=== PATIENT | female | born 1985 | race American Indian/Alaskan Native ===

== ENCOUNTER 2016-10-09 09:19 | Observation (INO) | payer BC, OTHER ==
[2016-10-09 09:19] VITALS: BMI 29.0
[2016-10-09] MEDS ORDERED: Sodium Chloride 0.9% 1,000 ML IV STA (09:54)
[2016-10-09 09:58] VITALS: RESP 18
--- NOTE | 2016-10-09 10:04 | ED PDOC ---
Arrival/HPI - General Historian: Patient - History of Present Illness Symptom Onset: Gradual Symptom Course: Worsening Quality: Pressure Severity Level: 8 Activities at Onset: Rest Context: Home - General Chief Complaint: Chest Pain Time Seen by Provider: 10/09/16 09:29 - History of Present Illness Narrative History of Present Illness (Text): 10/09/16 09:57 31 F with PMHx of costochondritis and fibroids [place] [facility] with complaints of chest pains. Pt states that her chest pain, described as pressure- like, began last night and has slowly intensified in severity from a 6/10 to a 8 /10. Pt noted that she felt feverish, lightheaded, headache, sob and dizzy last night as well. Her symptoms have gradually worsened since last night, and recently started feeling Right quadrant abdominal pain/pressure upon examination. Pt denied any recent surgeries, trauma, illnesses, recent travels, or sick contacts. Pt had a bm last night and is eating regularly. Pt currently denied fever, chills, palpitations, n/v/d/c or urinary symptoms. PMHx: costochondritis, fibroids PSHx: D&C following miscarriage SHx: Lives in [place] with spouse, denied tobacco, etoh, or drug abuse. Works as [employer]. LMP: 09/20/16 FamHx: Nonsignificant Allergies: NKDA Meds: none PMD: Dr. Diana Velazquez ([facility]) Past Medical History - Psychiatric Hx Substance Use: No - Surgical History Hx Section: Yes - Anesthesia Hx Anesthesia: Yes Hx Anesthesia Reactions: No Hx Malignant Hyperthermia: No Family/Social History Family/Social History: No Known Family HX Smoking Status: Never Smoked Hx Alcohol Use: No Hx Substance Use: No Allergies/Home Meds Allergies/Adverse Reactions: Allergies No Known Allergies Allergy (Verified 10/09/16 09:58) Home Medications: Home Meds Medication Instructions Recorded Confirmed No Known Home Med 05/31/16 10/09/16 Review of Systems - Review of Systems Constitutional: Fatigue Eyes: Normal ENT: Normal Respiratory: SOB. absent: Cough Cardiovascular: Chest Pain. absent: Palpitations Gastrointestinal: Abdominal Pain, Appetite Changes. absent: Stool Changes, Constipation, Diarrhea, Nausea, Vomiting Genitourinary Female: Normal Musculoskeletal: Myalgias Skin: Normal Neurological: Headache, Dizziness Endocrine: Normal Hemo/Lymphatic: Normal Psychiatric: Normal Physical Exam Vital Signs Reviewed: Yes Blood Pressure: Normal Pulse: Regular Respiratory Rate: Normal Appearance: Positive for: Well-Appearing, Non-Toxic, Comfortable Pain Distress: Moderate Mental Status: Positive for: Alert and Oriented X 3 - Systems Exam Head: Present: Atraumatic, Normocephalic Pupils: Present: PERRL Extroacular Muscles: Present: EOMI Conjunctiva: Present: Normal Mouth: Present: Moist Mucous Membranes Pharnyx: Present: Normal Neck: Present: Normal Range of Motion Respiratory/Chest: Present: Clear to Auscultation, Good Air Exchange, Tender to Palpation. No: Respiratory Distress, Accessory Muscle Use Cardiovascular: Present: Regular Rate and Rhythm, Normal S1, S2. No: Murmurs Abdomen: Present: Tenderness (ruq, rlq), Normal Bowel Sounds Upper Extremity: Present: Normal Inspection. No: Cyanosis, Edema Lower Extremity: Present: Normal Inspection. No: Edema Neurological: Present: GCS=15, CN II-XII Intact, Speech Normal Skin: Present: Warm, Dry, Normal Color. No: Rashes Psychiatric: Present: Alert, Oriented x 3, Normal Insight, Normal Concentration Vital Signs Temp Pulse Resp BP Pulse Ox 10/09/16 09:37 98.6 F 76 18 125/86 98 Medical Decision Making ED Course and Treatment: 10/09/16 10:07 31 F with PMHx of costochondritis presented [place] [facility] with complaints of migratory chest pains msk in nature, abdominal pains, and malaise. -- EKG -- CBC -- CMP -- amylase -- lipase -- UA -- UCx -- B-HCG -- CXR -- IVF -- analgesics, toradol -- PERC negative -- Influenza a/b swab -- CT Abd IV contrast (Jax,Manit) 10/09/16 11:51 Patient was seen by resident and then seen by me. Patient reported history of myalgias and subjective fever. She reported intermittent "chest tightness". She was also complaining of abdominal pain. She denies OCP use, recent surgery , calf swelling, tobacco use, family hx of sudden cardiac disease, HTN, DM, recent travel, or hx of pulmonary embolism. Physical exam was significant for RLQ pain. Labs, including ekg and cxray were ordered. Patient is perc negative. 10/09/16 12:52 EKG shows NSR at 70bpm with normal intervals and no ST changes. Cxray was negative. Flu and labs were negative. negative. Due to persistent abdominal pain, CT was ordered. Will sign out to Dr. Stoner to follow-up and reevaluate (Nicolasa Bobo) - Lab Interpretations Lab Results: 10/09/16 10:15 10/09/16 10:15 Lab Results 10/09/16 11:20: Influenza Typ A,B (EIA) Negative for flu a/b 10/09/16 10:15: WBC 8.6 D, RBC 4.54, Hgb 11.7 L, Hct 34.1 L, MCV 75.1 L, MCH 25.8, MCHC 34.3, RDW 13.7, Plt Count 269, MPV 10.7, Gran % 69.3 H, Lymph % (Auto ) 19.7 L, [place] % (Auto) 8.5 H, Eos % (Auto) 2.2, Baso % (Auto) 0.3, Gran # 5.96 , Lymph # 1.7, [place] # 0.7 H, Eos # 0.2, Baso # 0.03, Sodium 139, Potassium 4.1, Chloride 104, Carbon Dioxide 26, Anion Gap 13, BUN 9, Creatinine 0.8, Est GFR ( Amer) > 60, Est GFR (Non-Af Amer) > 60, Random Glucose 94, Calcium 9.2, Total Bilirubin 0.5, AST 23, ALT 12, Alkaline Phosphatase 46, Total Protein 7.5 , Albumin 4.0, Globulin 3.5, Albumin/Globulin Ratio 1.1, Amylase 81, Lipase 53, Urine Color Yellow, Urine Appearance Clear, Urine pH 7.0, Ur Specific [place] 1.015, Urine Protein Negative, Urine Glucose (UA) Negative, Urine Ketones Negative, Urine Blood Trace-intact H, Urine Nitrate Negative, Urine Bilirubin Negative, Urine Urobilinogen 0.2, Ur Leukocyte Esterase Negative, Urine RBC 0 - 2, Urine WBC Negative, Ur Epithelial Cells 0 - 2, Urine HCG, Qual Negative - RAD Interpretation Radiology Orders: 10/09/16 09:52 CHEST PORTABLE [RAD] Stat 10/09/16 11:36 ABD & PELVIS IV CONTRAST ONLY [CT] Stat - Medication Orders Current Medication Orders: Discontinued Medications Sodium Chloride (Sodium Chloride 0.9%) 1,000 mls @ 999 mls/hr IV .Q1H1M STA Stop: 10/09/16 10:54 Last Admin: 10/09/16 10:16 Dose: 999 MLS/HR eMAR Start Stop Document 10/09/16 10:16 [facility] (Rec: 10/09/16 10:16 [place] [id number]) Intravenous Solution Start Date 10/09/16 Start Time 10:16 End Date 10/09/16 End time 11:16 Total Infusion Time 60 Iohexol (Omnipaque 350 100 Ml) Confirm Administered Dose 350 mg .ROUTE .STK-MED ONE Stop: 10/09/16 11:45 Ketorolac Tromethamine (Toradol) 30 mg IVP STAT STA Stop: 10/09/16 09:55 Last Admin: 10/09/16 10:16 Dose: 30 MG IVP Administration Document 10/09/16 10:16 [facility] (Rec: 10/09/16 10:16 [place] [id number]) Charges for Administration # of IVP Administrations 1 Disposition/Present on Arrival - Present on Arrival Any Indicators Present on Arrival: No History of DVT/PE: No History of Uncontrolled Diabetes: No Urinary Catheter: No History Surgical Site Infection Following: None - Disposition Have Diagnosis and Disposition been Completed?: Yes Disposition Time: 11:00 - Disposition Diagnosis: Myalgia Patient Problems: Current Active Problems Problem Status Diagnosed Myalgia Acute Condition: IMPROVED Additional Instructions: 1. Pt is to fu with PMD Dr. Velazquez 2. Pt welcome to return [place] [facility] if develop any acute symptoms Referrals: Diana Velazquez DO [Primary Care Provider] - Follow up with primary
[2016-10-09 10:28] LABS: ADD MANUAL DIFF? NO
[2016-10-09 10:30] LABS: BASO # 0.03 K/mm3 (0.0-2.0); BASO % 0.3 % (0.0-3.0); EOS # 0.2 (0.0-0.7); EOS % 2.2 % (1.5-5.0); GRAN # 5.96 (1.4-6.5); GRAN % 69.3 % (50.0-68.0); HEMATOCRIT 34.1 % (36.0-48.0); LYMPH # 1.7 (1.2-3.4); LYMPH % 19.7 % (22.0-35.0); MEAN CELL VOLUME 75.1 fL (80.0-105.0); MEAN CORPUSCULAR HEMOGLOBIN 25.8 pg (25.0-35.0); MEAN CORPUSCULAR HGB CONC 34.3 g/dl (31.0-37.0); MEAN PLATELET VOLUME 10.7 fl (7.0-11.0); MONO # 0.7 (0.1-0.6); MONO % 8.5 % (1.0-6.0); PLATELET COUNT 269 10^3/uL (120.0-450.0); RED CELL DISTRIBUTION WIDTH 13.7 % (11.5-14.5); WHITE BLOOD COUNT 8.6 10^3/ul (4.5-11.0)
[2016-10-09 10:31] LABS: URINE BILIRUBIN NEGATIVE (NEGATIVE); URINE BLOOD TRACE-INTACT (NEGATIVE); URINE GLUCOSE (UA) NEGATIVE (NEGATIVE); URINE KETONE NEGATIVE (NEGATIVE); URINE LEUKOCYTE ESTERASE NEGATIVE Leu/uL (NEGATIVE); URINE PROTEIN NEGATIVE mg/dL (<30 mg/dL); URINE UROBILINOGEN 0.2 E.U./dL (<1 E.U./dL)
[2016-10-09 10:32] LABS: URINE APPEARANCE CLEAR (CLEAR); URINE COLOR YELLOW (YELLOW)
[2016-10-09 10:38] LABS: ALB/GLOB RATIO 1.1 (1.1-1.8); ALKALINE PHOSPHATASE 46 U/L (38-133); ALT/SGPT 12 U/L (7-56); AMYLASE 81 U/L (35-125); AST/SGOT 23 U/L (15-39); BILIRUBIN,TOTAL 0.5 mg/dL (0.2-1.3); BLOOD UREA NITROGEN 9 mg/dL (7-21); CALCIUM 9.2 mg/dL (8.4-10.5); CARBON DIOXIDE 26 mmol/L (21-33); CHLORIDE 104 mmol/L (98-107); GFR AFRICAN-AMERICAN > 60; GLUCOSE,RANDOM 94 mg/dL (70-110); LIPASE 53 U/L (23-300); POTASSIUM 4.1 mmol/L (3.6-5.0); SODIUM 139 mmol/L (132-148); TOTAL PROTEIN 7.5 g/dL (5.8-8.3)
[2016-10-09 10:47] LABS: URINE EPITHELIAL CELLS 0 - 2 /hpf (0-5); URINE RBC 0 - 2 /hpf (0-2); URINE WBC NEGATIVE /hpf (0-6)
--- NOTE | 2016-10-09 11:28 | RAD ---
HISTORY: chest pain COMPARISON: No prior. FINDINGS: LUNGS: No active pulmonary disease. PLEURA: No significant pleural effusion identified, no pneumothorax apparent. CARDIOVASCULAR: Normal. OSSEOUS STRUCTURES: No significant abnormalities. VISUALIZED UPPER ABDOMEN: Normal. OTHER FINDINGS: None. IMPRESSION: No active disease.
[2016-10-09] MEDS ORDERED: Iohexol 350 MG/100 ML VIAL ONE (11:44)
--- NOTE | 2016-10-09 13:04 | CT ---
PROCEDURE: CT Abdomen and Pelvis with contrast HISTORY: rlq pain COMPARISON: None. TECHNIQUE: Contrast dose: 100 mL of Omnipaque 350 Radiation dose: Total exam DLP = 648.87 mGy-cm. FINDINGS: LOWER THORAX: Unremarkable. LIVER: There is 1.3 centimeter low-attenuation lesion at the liver dome of uncertain etiology. Otherwise the liver demonstrates homogeneous enhancement. The portal vein is patent. GALLBLADDER AND BILE DUCTS: Unremarkable. PANCREAS: Unremarkable. No gross lesion or ductal dilatation. SPLEEN: Unremarkable. ADRENALS: Unremarkable. No mass. KIDNEYS AND URETERS: Mild fullness seen in the collecting system of both kidneys. The kidneys enhance symmetrically. VASCULATURE: Unremarkable. No aortic aneurysm. BOWEL: Unremarkable. No obstruction. No gross mural thickening. Mild constipation is noted. APPENDIX: Normal appendix. PERITONEUM: Unremarkable. No free fluid. No free air. LYMPH NODES: Unremarkable. No enlarged lymph nodes. BLADDER: Mild urinary bladder wall thickening. REPRODUCTIVE: The uterus is enlarged contains multiple calcified lesions suggestive of calcified fibroid. There is a enhancing wall cystic lesion at the left pelvis measures 2.4 centimeter may represent hemorrhagic cyst. There is also small sub centimeter enhancing wall lesion at the right adnexa. Small amount of fluid seen posterior to the uterus BONES: No acute fracture. OTHER FINDINGS: None. IMPRESSION: No evidence of appendicitis. No CT evidence of cholecystitis or pancreatitis. Mild constipation. Mildly enlarged heterogeneous uterus likely contains calcified fibroids. 2.4 centimeter enhancing wall cyst at the left adnexa may represent hemorrhagic cyst. Trace fluid in the pelvis. 1.3 centimeter low-attenuation lesion at the liver dome of uncertain etiology.
[2016-10-09 13:11] VITALS: BP 128/74; TEMP 97.6; O2SAT 100
[2016-10-09 14:59] VITALS: PULSE 76
--- NOTE | 2016-10-09 17:48 | CARD ---
APPROVED REPORT EKG Measurement Heart [id number] [place] [id number] [id number] <Conclusion> Normal sinus rhythm Normal ECG
== END 2016-10-09 13:20 | disposition home or self-care (01) ==
LOC: ED 09:19 → EROBSV 13:00
PROVIDERS: ADMIT Emergency Medicine; ATTEND Emergency Medicine
DX: M79.1 Myalgia (principal)
CPT/HCPCS: 71010; 74177; 80053; 81001; 82150; 83690; 84703; 85025; 87086; 87804; 93005; 96361; 96374; 99284; G0378; J1885; J7040; Q9967

== ENCOUNTER 2016-11-07 18:28 | Emergency (ER) | payer BC ==
[2016-11-07 18:37] VITALS: BMI 29.5
[2016-11-07 18:40] VITALS: BP 97/63; PULSE 105; RESP 16; TEMP 101; O2SAT 99
[2016-11-07] MEDS ORDERED: Sodium Chloride 0.9% 1,000 ML IV STA (19:15)
--- NOTE | 2016-11-07 19:19 | ED PDOC ---
Arrival/HPI - General Chief Complaint: Fever Time Seen by Provider: 11/07/16 19:15 Historian: Patient - History of Present Illness Narrative History of Present Illness (Text): 11/07/16 19:16 31yo female with no PMHx present with complaint of sore throat, fever, generalized weakness. Reports 3episodes of diarrhea this morning. States sore throat has been intermittent x 3weeks now. Did not take any medication for symptoms. +Dysphagia. Denies nausea, vomiting, abdominal pain, sick contact, travel, any other complaint. Past Medical History - Provider Review Nursing Documentation Reviewed: Yes - Psychiatric Hx Substance Use: No - Surgical History Hx Section: Yes - Anesthesia Hx Anesthesia: Yes Hx Anesthesia Reactions: No Hx Malignant Hyperthermia: No Family/Social History - Physician Review Nursing Documentation Reviewed: Yes Family/Social History: Unknown Family HX Smoking Status: Never Smoked Hx Alcohol Use: No Hx Substance Use: No Allergies/Home Meds Allergies/Adverse Reactions: Allergies No Known Allergies Allergy (Verified 11/07/16 18:37) Home Medications: Home Meds Medication Instructions Recorded Confirmed Ergocalciferol (Vitamin D2) 50,000 units PO .WEEKLY 11/07/16 11/07/16 [Vitamin D] Review of Systems - Physician Review All systems were reviewed & negative as marked: Yes - Review of Systems Constitutional: Fevers Eyes: Normal ENT: Sore Throat Respiratory: Normal Cardiovascular: Normal Gastrointestinal: Diarrhea. absent: Abdominal Pain, Constipation, Nausea, Hematochezia, Hematemesis Genitourinary Female: Normal Musculoskeletal: Myalgias Skin: Normal Neurological: Normal Endocrine: Normal Hemo/Lymphatic: Normal Psychiatric: Normal Physical Exam Vital Signs Reviewed: Yes Vital Signs Temp Pulse Resp BP Pulse Ox 11/07/16 19:29 101 F H 11/07/16 18:37 101 F H 105 H 16 97/63 L 99 Temperature: Febrile Blood Pressure: Normal Pulse: Tachycardic Respiratory Rate: Normal Appearance: Positive for: Well-Appearing, Non-Toxic, Comfortable Pain Distress: None Mental Status: Positive for: Alert and Oriented X 3 - Systems Exam Head: Present: Atraumatic, Normocephalic Pupils: Present: PERRL Extroacular Muscles: Present: EOMI Conjunctiva: Present: Normal Mouth: Present: Moist Mucous Membranes Pharnyx: Present: ERYTHEMA. No: EXUDATE, TONSILS ENLARGED, Peritonsilar Swelling, Uvular Deviation, Muffled/Hoarse Voice, Strider Nose (External): No: Atraumatic Neck: Present: Normal Range of Motion Respiratory/Chest: Present: Clear to Auscultation, Good Air Exchange. No: Respiratory Distress, Accessory Muscle Use Cardiovascular: Present: Regular Rate and Rhythm, Normal S1, S2. No: Murmurs Abdomen: Present: Normal Bowel Sounds, Other (Soft). No: Tenderness, Distention , Peritoneal Signs, Rebound, Guarding, McBurney's Point Tender, Rovsing's Sign Present Back: Present: Normal Inspection Upper Extremity: Present: Normal Inspection. No: Cyanosis, Edema Lower Extremity: Present: Normal Inspection. No: Edema Neurological: Present: GCS=15, CN II-XII Intact, Speech Normal Skin: Present: Warm, Dry, Normal Color. No: Rashes Psychiatric: Present: Alert, Oriented x 3, Normal Insight, Normal Concentration Medical Decision Making ED Course and Treatment: 11/07/16 22:32 Pt presented for stated history. She was febrile on presentation. Lab was reviewed with very mild leukocytosis noted. Rapid strep was positive. Pt was tx with Decadron, PCN and hydrated in ED. Result was DW the pt. she was referred to her PMD. TRT ED for any new or worsening symptoms. - Lab Interpretations Lab Results: 11/07/16 19:21 11/07/16 19:21 Lab Results 11/07/16 19:21: WBC 11.4 H D, RBC 4.54, Hgb 11.7 L, Hct 33.5 L, MCV 73.8 L, MCH 25.8, MCHC 34.9, RDW 14.1, Plt Count 234, MPV 9.9, Gran % 85.2 H, Lymph % (Auto ) 8.7 L, [place] % (Auto) 6.0, Eos % (Auto) 0.0 L, Baso % (Auto) 0.1, Gran # 9.73 H , Lymph # 1.0 L, [place] # 0.7 H, Eos # 0.0, Baso # 0.01, Sodium 138, Potassium 3.4 L, Chloride 102, Carbon Dioxide 25, Anion Gap 14, BUN 8, Creatinine 0.9, Est GFR ( Amer) > 60, Est GFR (Non-Af Amer) > 60, Random Glucose 100, Calcium 9.0, Total Bilirubin 0.7, AST 23, ALT 25, Alkaline Phosphatase 42, Total Protein 8.0, Albumin 4.0, Globulin 4.0, Albumin/Globulin Ratio 1.0 L, Influenza Typ A,B (EIA) Negative for flu a/b, Grp A Beta Strep Ag Positive H - Medication Orders Current Medication Orders: Discontinued Medications Acetaminophen (Tylenol 325mg Tab) 650 mg PO STAT STA Stop: 11/07/16 19:17 Last Admin: 11/07/16 19:29 Dose: 650 MG MAR Pain/Vitals Document 11/07/16 19:29 SE (Rec: 11/07/16 19:29 [id number]) Pain Reassessment Is This A Pain ReAssessment? No Sleep Is patient sleeping during reassessment? No Presence of Pain Presence of Pain Yes Vitals Temperature (97.6 F-99.6 F) 101 F Temperature Source Oral Dexamethasone (Decadron Inj) 10 mg IVP STAT STA Stop: 11/07/16 19:17 Last Admin: 11/07/16 19:29 Dose: 10 MG Comments: med not scanning IVP Administration Document 11/07/16 19:29 SE (Rec: 11/07/16 19:29 [id number]) Charges for Administration # of IVP Administrations 1 Sodium Chloride (Sodium Chloride 0.9%) 1,000 mls @ 999 mls/hr IV .Q1H1M STA Stop: 11/07/16 20:15 Last Admin: 11/07/16 19:29 Dose: 999 MLS/HR eMAR Start Stop Document 11/07/16 19:29 SE (Rec: 11/07/16 19:29 [id number]) Intravenous Solution Start Date 11/07/16 Start Time 19:29 Penicillin V Potassium (Penicillin Vk Tab) 500 mg PO STAT STA PRN Reason: Protocol Stop: 11/07/16 20:00 Last Admin: 11/07/16 20:05 Dose: 500 MG Comments: med not scanning Disposition/Present on Arrival - Present on Arrival Any Indicators Present on Arrival: No History of DVT/PE: No History of Uncontrolled Diabetes: No Urinary Catheter: No History of Decub. Ulcer: No History Surgical Site Infection Following: None - Disposition Have Diagnosis and Disposition been Completed?: Yes Diagnosis: Tonsillitis, Myalgia Disposition: HOME/ ROUTINE Disposition Time: 20:00 Patient Plan: Discharge Condition: STABLE Discharge Instructions (ExitCare): Tonsillitis (ED) Additional Instructions: Follow up with your Doctor Return to ED for any new or worsening symptoms Prescriptions: Penicillin VK [Pen-Vee K] 500 mg PO BID #14 tab Referrals: Diana Velazquez DO [Primary Care Provider] - Follow up with primary Forms: WORK NOTE
[2016-11-07 19:31] LABS: ADD MANUAL DIFF? NO
[2016-11-07 19:36] LABS: BASO # 0.01 K/mm3 (0.0-2.0); BASO % 0.1 % (0.0-3.0); GRAN # 9.73 (1.4-6.5); GRAN % 85.2 % (50.0-68.0); HEMATOCRIT 33.5 % (36.0-48.0); LYMPH % 8.7 % (22.0-35.0); MEAN CELL VOLUME 73.8 fL (80.0-105.0); MEAN CORPUSCULAR HEMOGLOBIN 25.8 pg (25.0-35.0); MEAN CORPUSCULAR HGB CONC 34.9 g/dl (31.0-37.0); MEAN PLATELET VOLUME 9.9 fl (7.0-11.0); MONO # 0.7 (0.1-0.6); PLATELET COUNT 234 10^3/uL (120.0-450.0); RED CELL DISTRIBUTION WIDTH 14.1 % (11.5-14.5); WHITE BLOOD COUNT 11.4 10^3/ul (4.5-11.0)
[2016-11-07 19:45] LABS: ALKALINE PHOSPHATASE 42 U/L (38-133); ALT/SGPT 25 U/L (7-56); AST/SGOT 23 U/L (15-39); BILIRUBIN,TOTAL 0.7 mg/dL (0.2-1.3); BLOOD UREA NITROGEN 8 mg/dL (7-21); CARBON DIOXIDE 25 mmol/L (21-33); CHLORIDE 102 mmol/L (98-107); GFR AFRICAN-AMERICAN > 60; GLUCOSE,RANDOM 100 mg/dL (70-110); POTASSIUM 3.4 mmol/L (3.6-5.0); SODIUM 138 mmol/L (132-148)
== END 2016-11-07 20:22 | disposition home or self-care (01) ==
LOC: ED 18:28
DX: J03.90 Acute tonsillitis, unspecified (principal); M79.1 Myalgia
CPT/HCPCS: 80053; 85025; 87430; 87804; 96374; 99284; J1100; J7040